=== PATIENT | male | born 1975 | race Caucasian/White ===

== ENCOUNTER 2018-12-03 08:00 | Outpatient (CLI) | payer BC, OTHER ==
[2018-12-03 17:45] LABS: BASOPHILS # (AUTO) 0.1 10^3/uL (0.0-0.1); BASOPHILS % (AUTO) 1.4 %; EOSINOPHILS # (AUTO) 0.3 10^3/uL (0.0-0.7); EOSINOPHILS % (AUTO) 6.6 %; HGB - HEMOGLOBIN 14.1 g/dL (14.0-18.0); LYMPHOCYTES # (AUTO) 1.3 10^3/uL (1.5-3.5); LYMPHOCYTES % (AUTO) 26.5 %; MEAN CORPUSCULAR HEMOGLOBIN 32.5 pg (27.0-31.0); MEAN CORPUSCULAR HGB CONC 33.9 g/dL (32.0-36.0); MEAN CORPUSCULAR VOLUME 95.9 fL (80.0-94.0); MONOCYTES # (AUTO) 0.3 10^3/uL (0.0-1.0); MONOCYTES % (AUTO) 6.4 %; NEUTROPHILS # (AUTO) 2.9 10^3/uL (1.5-6.6); NEUTROPHILS % (AUTO) 58.7 %; PLT - PLATELET COUNT 184 10^3/uL (130-450); RED BLOOD COUNT 4.34 10^6/uL (4.70-6.10); RED CELL DISTRIBUTION WIDTH 12.2 % (12.0-15.0)
[2018-12-03 18:12] LABS: ALBUMIN 4.8 g/dL (3.2-5.5); ALBUMIN/GLOBULIN RATIO 1.7 (1.0-2.2); ALKALINE PHOSPHATASE 60 IU/L (42-121); ALT ALANINE AMINOTRANSFERASE 42 IU/L (10-60); AST ASPARTATE AMINOTRANSFERASE 30 IU/L (10-42); BILIRUBIN,TOTAL 1.1 mg/dL (0.2-1.0); BUN - BLOOD UREA NITROGEN 16 mg/dL (6-20); CALCIUM 10.1 mg/dL (8.5-10.3); CARBON DIOXIDE - CO2 28 mmol/L (21-32); CHLORIDE 100 mmol/L (101-111); CHOL/HDL RATIO 5.1 (<5.0); CHOLESTEROL 258 mg/dL; CREATININE 0.9 mg/dL (0.6-1.2); GFR - MDRD 93 (>89); GLUCOSE 113 mg/dL (70-100); HDL CHOLESTEROL 51 mg/dL; LDL CHOLESTEROL,CALCULATED 176 mg/dL; LDL/HDL RATIO 3.5 (<3.6); SODIUM 136 mmol/L (135-145); TOTAL PROTEIN 7.7 g/dL (6.7-8.2); VLDL CHOLESTEROL 31 mg/dL
[2018-12-03 19:30] LABS: HB2 TOTAL 14.7 g/dL; HEMOGLOBIN A1C 0.55 g/dL; HEMOGLOBIN A1C % 5.6 % (4.6-6.2)
== END 2018-12-03 23:59 | disposition home or self-care (01) ==
LOC: LAB.S 08:00
PROVIDERS: ATTEND Registered Nurse
DX: I10 Essential (primary) hypertension (principal); Z13.220 Encounter for screening for lipoid disorders; Z13.1 Encounter for screening for diabetes mellitus; R16.0 Hepatomegaly, not elsewhere classified; Z72.89 Other problems related to lifestyle; J45.909 Unspecified asthma, uncomplicated
CPT/HCPCS: 36415; 80053; 80061; 83036; 83721; 84443; 85025

== ENCOUNTER 2020-02-07 12:36 | Outpatient (CLI) | payer OTHER ==
[2020-02-07 15:07] LABS: BASOPHILS # (AUTO) 0.1 10^3/uL (0.0-0.1); EOSINOPHILS # (AUTO) 0.3 10^3/uL (0.0-0.7); EOSINOPHILS % (AUTO) 6.4 %; LYMPHOCYTES # (AUTO) 1.4 10^3/uL (1.5-3.5); MEAN CORPUSCULAR HEMOGLOBIN 32.4 pg (27.0-31.0); MEAN CORPUSCULAR HGB CONC 33.6 g/dL (32.0-36.0); MEAN CORPUSCULAR VOLUME 96.5 fL (80.0-94.0); MEAN PLATELET VOLUME 10.7 fL (7.4-11.4); MONOCYTES # (AUTO) 0.3 10^3/uL (0.0-1.0); MONOCYTES % (AUTO) 6.8 %; NEUTROPHILS # (AUTO) 2.7 10^3/uL (1.5-6.6); NEUTROPHILS % (AUTO) 56.2 %; PLT - PLATELET COUNT 178 10^3/uL (130-450); RED BLOOD COUNT 4.01 10^6/uL (4.70-6.10); RED CELL DISTRIBUTION WIDTH 12.2 % (12.0-15.0); WHITE BLOOD COUNT 4.9 x10^3/uL (4.8-10.8)
[2020-02-07 15:29] LABS: ALBUMIN 4.8 g/dL (3.2-5.5); ALBUMIN/GLOBULIN RATIO 1.7 (1.0-2.2); ALKALINE PHOSPHATASE 63 IU/L (42-121); ALT ALANINE AMINOTRANSFERASE 49 IU/L (10-60); AST ASPARTATE AMINOTRANSFERASE 37 IU/L (10-42); BILIRUBIN,TOTAL 0.6 mg/dL (0.2-1.0); BUN - BLOOD UREA NITROGEN 13 mg/dL (6-20); CALCIUM 9.5 mg/dL (8.5-10.3); CARBON DIOXIDE - CO2 26 mmol/L (21-32); CHLORIDE 103 mmol/L (101-111); CHOL/HDL RATIO 5.4 (<5.0); CHOLESTEROL 247 mg/dL; CREATININE 0.8 mg/dL (0.6-1.2); GLUCOSE 119 mg/dL (70-100); HDL CHOLESTEROL 46 mg/dL; LDL CHOLESTEROL,CALCULATED 179 mg/dL; LDL/HDL RATIO 3.9 (<3.6); SODIUM 138 mmol/L (135-145); TOTAL PROTEIN 7.6 g/dL (6.7-8.2); VLDL CHOLESTEROL 22 mg/dL
== END 2020-02-07 12:37 | disposition home or self-care (01) ==
LOC: LAB.S 12:36
PROVIDERS: ATTEND Registered Nurse
DX: R16.0 Hepatomegaly, not elsewhere classified (principal); Z72.89 Other problems related to lifestyle; I10 Essential (primary) hypertension; J45.909 Unspecified asthma, uncomplicated
CPT/HCPCS: 36415; 80053; 80061; 83721; 84443; 85025

== ENCOUNTER 2021-11-21 11:36 | Outpatient (CLI) | payer OTHER ==
[2021-11-21 14:53] LABS: BASOPHILS # (AUTO) 0.1 10^3/uL (0.0-0.1); EOSINOPHILS # (AUTO) 0.2 10^3/uL (0.0-0.7); HCT - HEMATOCRIT 39.2 % (42.0-52.0); HGB - HEMOGLOBIN 13.3 g/dL (14.0-18.0); LYMPHOCYTES # (AUTO) 1.3 10^3/uL (1.5-3.5); LYMPHOCYTES % (AUTO) 27.8 %; MEAN CORPUSCULAR HEMOGLOBIN 31.7 pg (27.0-31.0); MEAN CORPUSCULAR HGB CONC 33.9 g/dL (32.0-36.0); MEAN CORPUSCULAR VOLUME 93.6 fL (80.0-94.0); MEAN PLATELET VOLUME 10.8 fL (7.4-11.4); MONOCYTES # (AUTO) 0.4 10^3/uL (0.0-1.0); MONOCYTES % (AUTO) 9.2 %; NEUTROPHILS # (AUTO) 2.7 10^3/uL (1.5-6.6); NEUTROPHILS % (AUTO) 56.8 %; PLT - PLATELET COUNT 194 10^3/uL (130-450); RED BLOOD COUNT 4.19 10^6/uL (4.70-6.10); RED CELL DISTRIBUTION WIDTH 12.1 % (12.0-15.0); WHITE BLOOD COUNT 4.8 x10^3/uL (4.8-10.8)
[2021-11-21 15:28] LABS: ALBUMIN 4.9 g/dL (3.2-5.5); ALBUMIN/GLOBULIN RATIO 1.8 (1.0-2.2); ALKALINE PHOSPHATASE 62 IU/L (42-121); ALT ALANINE AMINOTRANSFERASE 52 IU/L (10-60); AST ASPARTATE AMINOTRANSFERASE 37 IU/L (10-42); BILIRUBIN,TOTAL 0.9 mg/dL (0.2-1.0); BUN - BLOOD UREA NITROGEN 13 mg/dL (6-20); CHOL/HDL RATIO 4.8 (<5.0); CHOLESTEROL 243 mg/dL; CREATININE 0.7 mg/dL (0.6-1.2); GFR - MDRD 122 (>89); HDL CHOLESTEROL 51 mg/dL; LDL CHOLESTEROL,CALCULATED 180 mg/dL; LDL/HDL RATIO 3.5 (<3.6); TOTAL PROTEIN 7.7 g/dL (6.7-8.2); TRIGLYCERIDES 61 mg/dL; VLDL CHOLESTEROL 12 mg/dL
[2021-11-21 15:35] LABS: THYROID STIMULATING HORMONE 1.71 uIU/mL (0.34-5.60)
[2021-11-21 16:08] LABS: CALCIUM 9.8 mg/dL (8.5-10.3); CARBON DIOXIDE - CO2 25 mmol/L (21-32); CHLORIDE 98 mmol/L (101-111); GLUCOSE 119 mg/dL (70-100); POTASSIUM 4.5 mmol/L (3.5-5.0); SODIUM 134 mmol/L (135-145)
== END 2021-11-21 11:37 | disposition home or self-care (01) ==
LOC: LAB.S 11:36
PROVIDERS: ATTEND Registered Nurse
DX: J45.909 Unspecified asthma, uncomplicated (principal); Z13.220 Encounter for screening for lipoid disorders; Z13.29 Encounter for screening for other suspected endocrine disorder
CPT/HCPCS: 36415; 80053; 80061; 83721; 84443; 85025

== ENCOUNTER 2022-11-16 10:59 | Emergency (ER) | payer BC, OTHER ==
[2022-11-16] MEDS ORDERED: DEXAMETHASONE 10 MG/ML VIAL IVP STA (11:19)
--- NOTE | 2022-11-16 12:51 | ED Physician Documentation ---
History of Present Illness - Stated complaint Stated Complaint: RT EYE SWOLEN/THOAT SWELLING - Chief complaint Chief Complaint: Heent - History obtained from History obtained from: Patient, Family () - History of Present Illness Timing: Today - Additonal information Additional information: 47-year-old Moshe Pascual has a history of hypertension and is on some losartan. Today he was outside on a walk felt some sneezing and suddenly had swelling to his right eye. His eye is swollen shut. There is no pain associated. He has some swelling to the back of his throat as well. He has not had this happen to him previously. Review of Systems Constitutional: denies: Fever Eyes: reports: Other (Marked swelling of the right upper eye lid). denies: Decreased vision Ears: denies: Ear pain Nose: denies: Congestion Throat: reports: Other (Swelling to the back of the throat) Cardiac: denies: Chest pain / pressure, Palpitations Respiratory: denies: Dyspnea, Cough GI: denies: Nausea, Vomiting, Constipation, Diarrhea PD ED PE NORMAL - Vitals Vital signs reviewed: Yes (Hypertensive mild) - General General: Alert and oriented X 3, No acute distress, Well developed/nourished, Other (47-year-old male with obvious and dramatic swelling to the right upper eyelid. No erythema associated.) - HEENT HEENT: Atraumatic, PERRL, EOMI, Other (There is no scleral injection to either eye and no involvement of the lower lids bilaterally the upper lid on the right is markedly swollen lifting the lid shows a normal right eye. No evidence of scleral injection. Uvula mild swelling) - Neck Neck: Supple, no meningeal sign, No bony TTP - Cardiac Cardiac: RRR, No murmur - Respiratory Respiratory: No respiratory distress, Clear bilaterally - Abdomen Abdomen: Soft, Non tender - Back Back: No CVA TTP, No spinal TTP - Derm Derm: Normal color, Warm and dry, No rash - Extremities Extremities: No deformity, No edema - Neuro Neuro: Alert and oriented X 3, lumber sorter 2-12 intact, No motor deficit, No sensory deficit, Normal speech Eye Opening: Spontaneous Motor: Obeys Commands Verbal: Oriented GCS Score: 15 - Psych Psych: Normal mood, Normal affect Results - Vitals Vitals: Vital Signs - 24 hr 11/16/22 11/16/22 11/16/22 11:03 11:22 11:30 Temperature 36.8 C Heart Rate 88 72 Respiratory 18 Rate Blood Pressure 141/95 H 99/52 L 111/81 H O2 Saturation 98 11/16/22 11:38 Temperature 98.2 C H Heart Rate 65 Respiratory 15 Rate Blood Pressure 125/84 H O2 Saturation 98 Oxygen O2 Source Room air PD Medical Decision Making - ED course Complexity details: re-evaluated patient, considered differential, d/w patient, d/w family ED course: Moshe Pascual is a 47-year-old male presenting today with right upper eyelid swelling. He has angioedema on evaluation and he is on losartan. He is a administered dexamethasone 10 mg intravenously and has excellent results within the hour. He has further results before discharge and the expectation is continued improvement. I have asked him to stop his losartan and follow-up with his primary for an alternative agent. I have asked patient to take Benadryl 25 mg every 6 hours for the next 2 days. Departure - Departure Disposition: 01 Home, Self Care Clinical Impression: Angio-edema Qualifiers: Encounter type: initial encounter Qualified Code(s): T78.3XXA - Angioneurotic edema, initial encounter Condition: Stable Instructions: ED Angioedema Follow-Up: Faviola Mckeon ARNP [Credentialed Staff Provider] - Comments: Moshe, today it looks like you have an episode of angioedema and this is an idiosyncratic reaction to the losartan that you are on. The recommendation is to discontinue the losartan and to take Benadryl 25 mg every 6 hours for the next 2 days. Today you were given a dose of dexamethasone and we are not expecting symptoms to return.
[2022-11-16 14:21] VITALS: BP 129/83; O2SAT 12
== END 2022-11-16 14:21 | disposition home or self-care (01) ==
LOC: ED 10:59
DX: T78.3XXA Angioneurotic edema, initial encounter (principal); I10 Essential (primary) hypertension
CPT/HCPCS: 96374; 99284

== ENCOUNTER 2022-12-02 11:20 | Outpatient (CLI) | payer BC ==
[2022-12-02 14:38] LABS: BASOPHILS # (AUTO) 0.1 10^3/uL (0.0-0.1); BASOPHILS % (AUTO) 1.3 %; EOSINOPHILS # (AUTO) 0.3 10^3/uL (0.0-0.7); EOSINOPHILS % (AUTO) 5.7 %; HCT - HEMATOCRIT 38.2 % (42.0-52.0); HGB - HEMOGLOBIN 12.7 g/dL (14.0-18.0); MEAN CORPUSCULAR HEMOGLOBIN 33.3 pg (27.0-31.0); MEAN CORPUSCULAR HGB CONC 33.2 g/dL (32.0-36.0); MEAN CORPUSCULAR VOLUME 100.3 fL (80.0-94.0); MEAN PLATELET VOLUME 10.2 fL (7.4-11.4); MONOCYTES # (AUTO) 0.4 10^3/uL (0.0-1.0); MONOCYTES % (AUTO) 9.4 %; NEUTROPHILS # (AUTO) 2.8 10^3/uL (1.5-6.6); NEUTROPHILS % (AUTO) 61.2 %; PLT - PLATELET COUNT 216 10^3/uL (130-450); RED BLOOD COUNT 3.81 10^6/uL (4.70-6.10); RED CELL DISTRIBUTION WIDTH 13.1 % (12.0-15.0); WHITE BLOOD COUNT 4.6 x10^3/uL (4.8-10.8)
[2022-12-02 15:38] LABS: ALBUMIN 4.9 g/dL (3.2-5.5); ALKALINE PHOSPHATASE 55 IU/L (42-121); ALT ALANINE AMINOTRANSFERASE 65 IU/L (10-60); AST ASPARTATE AMINOTRANSFERASE 40 IU/L (10-42); BILIRUBIN,TOTAL 0.8 mg/dL (0.2-1.0); BUN - BLOOD UREA NITROGEN 14 mg/dL (6-20); CALCIUM 9.9 mg/dL (8.5-10.3); CARBON DIOXIDE - CO2 28 mmol/L (21-32); CHLORIDE 99 mmol/L (101-111); CHOL/HDL RATIO 2.4 (<5.0); CHOLESTEROL 235 mg/dL; CREATININE 0.7 mg/dL (0.6-1.3); GFR - MDRD 121 (>89); GLUCOSE 109 mg/dL (74-104); HDL CHOLESTEROL 96 mg/dL; LDL CHOLESTEROL,CALCULATED 120 mg/dL; LDL/HDL RATIO 1.3 (<3.6); POTASSIUM 4.1 mmol/L (3.5-4.5); SODIUM 136 mmol/L (135-145); TOTAL PROTEIN 7.4 g/dL (6.4-8.9); TRIGLYCERIDES 93 mg/dL (48-352); VLDL CHOLESTEROL 19 mg/dL
== END 2022-12-02 11:21 | disposition home or self-care (01) ==
LOC: LAB.S 11:20
PROVIDERS: ATTEND Registered Nurse
DX: E78.5 Hyperlipidemia, unspecified (principal); Z12.5 Encounter for screening for malignant neoplasm of prostate; Z79.899 Other long term (current) drug therapy
CPT/HCPCS: 36415; 80053; 80061; 81599; 83721; 84153; 85025

== ENCOUNTER 2023-03-02 10:31 | Outpatient (CLI) | payer BC ==
[2023-03-02 15:07] LABS: CALCIUM 10.4 mg/dL (8.5-10.3); CREATININE 0.7 mg/dL (0.6-1.3); POTASSIUM 3.7 mmol/L (3.5-4.5)
[2023-03-02 20:44] LABS: ESTIMATED AVERAGE GLUCOSE 97 mg/dL (70-100)
== END 2023-03-02 10:32 | disposition home or self-care (01) ==
LOC: LAB.S 10:31
PROVIDERS: ATTEND Registered Nurse
DX: R73.9 Hyperglycemia, unspecified (principal); Z79.899 Other long term (current) drug therapy; Z12.5 Encounter for screening for malignant neoplasm of prostate
CPT/HCPCS: 36415; 80048; 83036; 84153

== ENCOUNTER 2023-04-14 10:52 | Outpatient (CLI) | payer BC ==
[2023-04-14] MEDS: ALBUTEROL 1 PUFF INH STA (14:59)
== END 2023-04-14 10:53 | disposition home or self-care (01) ==
LOC: RT 10:52
PROVIDERS: ATTEND Registered Nurse
DX: J45.909 Unspecified asthma, uncomplicated (principal)
CPT/HCPCS: 94060; 94729